=== PATIENT | female | born 1980 | race Hispanic/Latino ===

== ENCOUNTER 2022-10-12 08:04 | Outpatient (CLI) | payer BC | END 2022-10-12 08:05 | disposition home or self-care (01) | LOC: CSHMRI 08:04 | PROVIDERS: ATTEND Family Medicine | DX: M54.41 Lumbago with sciatica, right side (principal); M47.816 Spondylosis without myelopathy or radiculopathy, lumbar region | CPT/HCPCS: 72148 ==